=== PATIENT | male | born 1975 | race Caucasian/White ===

== ENCOUNTER → 2022-08-16 | Outpatient (CLI) | payer BC ==
--- NOTE | 2022-08-16 11:19 | XR ---
EXAMINATION TYPE: XR lumbosacral spine min 4V DATE OF EXAM: 08/16/2022 COMPARISON: None HISTORY: Back pain and weakness TECHNIQUE: 5V lumbar spine FINDINGS: There are 5 lumbar-type vertebral bodies. The pedicles are intact. Disc heights are preserv ed. Vertebral body heights are preserved. Facets appear normal. No spondylolytic defects are evident. There may be some mild sacroiliac joint degenerative changes. Mild spondylosis is present. IMPRESSION: 1. No suspicious acute changes lumbar spine. MRI can be performed as clinically indicated
== END | disposition home or self-care (01) ==
LOC: RADXRYALE 10:35
PROVIDERS: ATTEND Family Medicine
DX: M54.51 Vertebrogenic low back pain (principal)
CPT/HCPCS: 72110